=== PATIENT | female | born 1965 | race Caucasian/White ===

== ENCOUNTER 2017-01-29 15:21 | Observation (INO) ==
[2017-01-29] MEDS ORDERED: Ondansetron 4 MG/2 ML VIAL IVP ONE (15:55)
[2017-01-29] MEDS ORDERED: *HR* HYDROmorphone (PF) 1 MG/ML SYRINGE IVP ONE ×2 (15:55→17:56)
[2017-01-29] MEDS ORDERED: 0.9 % Sodium Chloride 1,000 ML IVC ONE (15:55)
[2017-01-29] MEDS ORDERED: Ketorolac 30 MG/ML VIAL IVP ONE (15:55)
[2017-01-29 16:16] LABS: Bilirubin,Urine Negative (Negative); Blood,Urine Moderate (Negative); Clarity,Urine Cloudy (Clear); Color,Urine Yellow (Yellow); Glucose,Urine (UA) Normal (Normal); Ketones,Urine Negative (Negative); Leukocyte Esterase,Urine Moderate (Negative); Nitrite,Urine Negative (Negative); Protein,Urine 30 mg/dL (Neg-Trace); Specific Gravity,Urine > 1.030 (1.010-1.025); Urobilinogen,Urine Normal (Normal)
[2017-01-29 16:19] LABS: Bacteria,Urine None Seen per hpf (None-Few); Squamous Epithelial Cell,Urine Many per lpf (None-Few); WBC,Urine TNTC per hpf (0-3)
[2017-01-29 16:45] LABS: Basophils % 0.2 %; Eosinophils % 0.2 %; Hematocrit 39.4 % (35.3-44.9); Hemoglobin 13.4 g/dL (11.5-15.4); Immature Granulocytes % 0.3 % (0-4); Lymphocytes # 0.6 K/mcL (0.6-4.6); Lymphocytes % 5.5 %; Mean Corpuscular Hemoglobin 31.4 pg (28.0-33.3); Mean Corpuscular Volume 92.3 fL (83.0-100.0); Mean Platelet Volume 10.8 fL (9.4-12.4); Monocytes # 0.3 K/mcL (0.0-1.3); Neutrophils # 10.1 K/mcL (1.6-8.9); Platelet Count 219 K/mcL (140-400); Red Blood Count 4.27 M/mcL (3.82-4.97); Red Cell Distribution Width 12.8 % (11.5-14.5); Segmented Neutrophils % 90.8 %
[2017-01-29 16:58] LABS: BUN/Creatinine Ratio 18 (6-26); Bilirubin,Direct 0.4 mg/dL (0.0-0.5); Bilirubin,Total 0.9 mg/dL (0.2-1.2); Blood Urea Nitrogen 19 mg/dL (7-20); Calcium 9.5 mg/dL (8.6-10.8); Carbon Dioxide 25 mEq/L (19-29); Chloride 104 mEq/L (98-109); Glucose 99 mg/dL (70-99); Osmolality,Calculated 288 (280-300); Potassium 3.2 mEq/L (3.5-4.5); Sodium 138 mEq/L (136-145); eGFR For African Americans > 60 (> 60); eGFR For Non-African Americans 54 (> 60)
[2017-01-29 16:59] LABS: Alanine Aminotransferase 9 Units/L (0-55); Albumin 3.7 g/dL (3.5-5.0); Albumin/Globulin Ratio 1.1 (1.1-2.2); Alkaline Phosphatase 70 Units/L (38-126); Aspartate Amino Transferase 15 Units/L (5-34); Bilirubin,Indirect 0.5 mg/dL (0.0-1.2); Globulin 3.3 g/dL (2.4-3.5)
--- NOTE | 2017-01-29 17:00 | Emergency Department Note ---
Disposition Clinical Impression: Vasovagal syncope, Renal calculi Disposition: Admitted As Inpatient Condition: Good Time of Disposition: 18:14 General Adult HPI - General Chief complaint: ED Syncope Stated complaint: Kidney Stones Time Seen by Provider: 01/29/17 15:37 Source: patient Limitations: no limitations Nursing Notes Reviewed: Yes Vital Signs Reviewed: Yes - History of Present Illness HPI Narrative: Patient began having left flank pain earlier today. States that she had a decreased appetite because of the pain was so severe. Does have history of kidney stones states this feels the same. Also had one episode of syncope while in the waiting room. This happened after she urinated and had walked back to her seat. Pain Scale: 9 - Related Data Home Medications Medication Instructions Recorded Confirmed Atorvastatin Calcium [Lipitor] 80 mg PO HS 01/29/17 01/29/17 Black Cohosh 540 mg PO DAILY 01/29/17 01/29/17 Cholecalciferol (Vitamin D3) 2,000 unit PO DAILY 01/29/17 01/29/17 [Vitamin D] Cyanocobalamin (Vitamin B-12) 500 mcg PO DAILY 01/29/17 01/29/17 [Vitamin B-12] Desog-E.estradiol/E.estradiol 1 each PO DAILY 01/29/17 01/29/17 [Azurette 28 Day Tablet] FLUoxetine HCl [PROzac] 20 mg PO AD 01/29/17 01/29/17 Lisinopril [Zestril] 5 mg PO DAILY 01/29/17 01/29/17 Loratadine [Claritin] 10 mg PO DAILY 01/29/17 01/29/17 hydroCHLOROthiazide 25 mg PO DAILY 01/29/17 01/29/17 [Hydrochlorothiazide] Allergies Allergy/AdvReac Type Severity Reaction Status Date / Time Bee Pollen Allergy See Verified 01/29/17 15:48 Comments All systems ED: reviewed and negative except as stated. Constitutional: Denies: fever, chills Cardiovascular: Denies: chest pain, palpitations, syncope Respiratory: Denies: cough, dyspnea Gastrointestinal: Reports: nausea. Denies: abdominal pain, vomiting, diarrhea, hematemesis, melena, hematochezia Genitourinary: Reports: hematuria. Denies: urgency, dysuria, frequency Musculoskeletal: Reports: back pain. Denies: neck pain Integumentary: Denies: rash, abrasion Neurological: Denies: headache, weakness, numbness Past Medical History - Past Medical History Attestation: Yes The following information was validated with the patient. Source: patient Medical history: Reports: hyperlipidemia, hypertension, kidney stones, migraine Psychiatric history: Reports: no psych history - Social History Smoking Status: Never smoker Smokeless Tobacco Status: No Alcohol use: Reports: none Drug use: Reports: none Physical Exam - General Limitations: no limitations General appearance: alert, in no apparent distress - Head Head exam: atraumatic, normocephalic, normal inspection - Eye Eye exam: Present: normal appearance, PERRL, EOMI. Absent: scleral icterus - ENT ENT exam: normal exam, normal oropharynx, mucous membranes moist - Neck Neck exam: Present: normal inspection, full ROM, trachea midline. Absent: tenderness - Chest Chest inspection: Present: normal inspection, symmetric chest wall rise. Absent : tenderness - Respiratory Respiratory exam: Present: normal lung sounds bilaterally. Absent: respiratory distress - Cardiovascular Cardiovascular exam: Present: regular rate, normal rhythm, normal heart sounds - Abdominal Exam Abdominal exam: Present: soft, Non-Tender, normal bowel sounds. Absent: tenderness, distention, guarding, rebound, rigidity, organomegaly - Extremities Exam Extremities exam: Present: normal inspection, full ROM, normal capillary refill. Absent: tenderness, pedal edema - Back Exam Back exam: Present: normal inspection, full ROM, CVA tenderness (L) - Neurological Exam Neurological exam: Present: alert, oriented X3 - Psychiatric Psychiatric exam: Present: normal affect, normal mood - Skin Skin exam: Present: warm, dry, intact, normal color. Absent: rash, cyanosis, erythema Course Course Narrative: Female patient states that today she started having left flank pain. She does have a history of kidney stones. States this feels the same. Denies any urinary symptoms such as burning or dysuria. Denies any hematuria. Surgery to have a stone removed. She cannot remember when her last stone was. States that it has been several years ago that she has had a CT scan. Patient states that she was seen at this facility and given additional health and sent to the emergency department. She states she had a syncopal episode while in the emergency department room. She denies any palpitations. She denies any shortness of breath or chest pain. Denies any fevers. She states she is otherwise healthy. States she is feeling better now however she did get a wave of hot and cold prior to her syncopal episode. She states she just returned from the bathroom. She was in a seated position when this happened. She did not fall and strike her head. She is mentating appropriately at this time. A CT scan of patient's abdomen provider with pain medication and get a basic lab workup inclusive of a UA. - Reevaluation(s) Reevaluation #1: I want to reassess the patient and discussed admission versus discharge with her. She is now saying that she is about to cry because the pain is so severe. She is requesting admission for pain control. We will admit patient to the hospital. Have given patient a dose of Rocephin due to her syncope, UA, renal stone. Time: 17:55 - Consultations Consultation #1: I spoke with Dr. Freed. He states that he will accept her to his service if the patient requests to stay for pain management. He states that he would also be able to see the patient in outpatient clinic tomorrow if she elects to go home. I will discuss this with the patient. Time: 17:53 Vital Signs Temperature 97.9 F 01/29/17 15:38 Pulse Rate 83 01/29/17 15:38 Respiratory Rate 16 01/29/17 15:38 Blood Pressure 127/75 01/29/17 15:38 O2 Sat by Pulse Oximetry 99 01/29/17 15:38 Temperature 98.7 F 01/30/17 17:38 Pulse Rate 83 01/30/17 17:48 Respiratory Rate 16 01/30/17 17:48 Blood Pressure 126/62 01/30/17 17:48 O2 Sat by Pulse Oximetry 95 01/30/17 17:48 Oxygen Delivery Oxygen Delivery Room Air Medical Decision Making - Medical Records Medical records reviewed: Yes I reviewed the patient's medical records. - Lab Data Lab results reviewed: Yes I reviewed the patient's lab results. Result diagrams: 01/29/17 16:36 01/30/17 02:36 Lab Results 01/29/17 01/29/17 01/29/17 Range/Units 16:07 16:36 16:36 WBC 11.1 (4.3-11.1) K/mcL RBC 4.27 (3.82-4.97) M/mcL Hgb 13.4 (11.5-15.4) g/dL Hct 39.4 (35.3-44.9) % MCV 92.3 (83.0-100.0) fL MCH 31.4 (28.0-33.3) pg MCHC 34.0 (31.6-35.5) g/dL RDW 12.8 (11.5-14.5) % Plt Count 219 (140-400) K/mcL MPV 10.8 (9.4-12.4) fL Immature Gran % 0.3 (0-4) % Seg Neutrophils % 90.8 % Lymphocytes % 5.5 % Monocytes % 3.0 % Eosinophils % 0.2 % Basophils % 0.2 % Neutrophils # 10.1 H (1.6-8.9) K/mcL Lymphocytes # 0.6 (0.6-4.6) K/mcL Monocytes # 0.3 (0.0-1.3) K/mcL Eosinophils # 0.0 (0.0-0.6) K/mcL Basophils # 0.0 (0.0-0.2) K/mcL Sodium 138 (136-145) mEq/L Potassium 3.2 L (3.5-4.5) mEq/L Chloride 104 (98-109) mEq/L Carbon Dioxide 25 (19-29) mEq/L BUN 19 (7-20) mg/dL Creatinine 1.07 (0.57-1.11) mg/dL Est GFR ( Amer) > 60 (> 60) Est GFR (Non-Af Amer) 54 L (> 60) BUN/Creatinine Ratio 18 (6-26) Glucose 99 (70-99) mg/dL Calculated Osmolality 288 (280-300) Calcium 9.5 (8.6-10.8) mg/dL Total Bilirubin 0.9 (0.2-1.2) mg/dL Direct Bilirubin 0.4 (0.0-0.5) mg/dL Indirect Bilirubin 0.5 (0.0-1.2) mg/dL AST 15 (5-34) Units/L ALT 9 (0-55) Units/L Alkaline Phosphatase 70 (38-126) Units/L Troponin I (0-0.03) ng/mL Serum Total Protein 7.0 (6.0-8.3) g/dL Albumin 3.7 (3.5-5.0) g/dL Globulin 3.3 (2.4-3.5) g/dL Albumin/Globulin Ratio 1.1 (1.1-2.2) Ur Specimen Adequacy See below A Urine Color Yellow (Yellow) Urine Clarity Cloudy A (Clear) Urine pH 6.0 (5.0-8.0) pH Units Ur Specific [place] > 1.030 H (1.010-1.025) Urine Protein 30 H (Neg-Trace) mg/dL Urine Glucose (UA) Normal (Normal) mg/dL Urine Ketones Negative (Negative) mg/dL Urine Blood Moderate H (Negative) Urine Nitrite Negative (Negative) Urine Bilirubin Negative (Negative) Urine Urobilinogen Normal (Normal) mg/dL Ur Leukocyte Esterase Moderate H (Negative) Urine Microscopic WBC TNTC H (0-3) per hpf Ur Squamous Epith Cells Many H (None-Few) per lpf Urine Bacteria None Seen (None-Few) per hpf Ur Culture Indicated? YES A (NO) 01/29/17 Range/Units 16:36 WBC (4.3-11.1) K/mcL RBC (3.82-4.97) M/mcL Hgb (11.5-15.4) g/dL Hct (35.3-44.9) % MCV (83.0-100.0) fL MCH (28.0-33.3) pg MCHC (31.6-35.5) g/dL RDW (11.5-14.5) % Plt Count (140-400) K/mcL MPV (9.4-12.4) fL Immature Gran % (0-4) % Seg Neutrophils % % Lymphocytes % % Monocytes % % Eosinophils % % Basophils % % Neutrophils # (1.6-8.9) K/mcL Lymphocytes # (0.6-4.6) K/mcL Monocytes # (0.0-1.3) K/mcL Eosinophils # (0.0-0.6) K/mcL Basophils # (0.0-0.2) K/mcL Sodium (136-145) mEq/L Potassium (3.5-4.5) mEq/L Chloride (98-109) mEq/L Carbon Dioxide (19-29) mEq/L BUN (7-20) mg/dL Creatinine (0.57-1.11) mg/dL Est GFR ( Amer) (> 60) Est GFR (Non-Af Amer) (> 60) BUN/Creatinine Ratio (6-26) Glucose (70-99) mg/dL Calculated Osmolality (280-300) Calcium (8.6-10.8) mg/dL Total Bilirubin (0.2-1.2) mg/dL Direct Bilirubin (0.0-0.5) mg/dL Indirect Bilirubin (0.0-1.2) mg/dL AST (5-34) Units/L ALT (0-55) Units/L Alkaline Phosphatase (38-126) Units/L Troponin I 0.02 (0-0.03) ng/mL Serum Total Protein (6.0-8.3) g/dL Albumin (3.5-5.0) g/dL Globulin (2.4-3.5) g/dL Albumin/Globulin Ratio (1.1-2.2) Ur Specimen Adequacy Urine Color (Yellow) Urine Clarity (Clear) Urine pH (5.0-8.0) pH Units Ur Specific [place] (1.010-1.025) Urine Protein (Neg-Trace) mg/dL Urine Glucose (UA) (Normal) mg/dL Urine Ketones (Negative) mg/dL Urine Blood (Negative) Urine Nitrite (Negative) Urine Bilirubin (Negative) Urine Urobilinogen (Normal) mg/dL Ur Leukocyte Esterase (Negative) Urine Microscopic WBC (0-3) per hpf Ur Squamous Epith Cells (None-Few) per lpf Urine Bacteria (None-Few) per hpf Ur Culture Indicated? (NO) - Radiology Data Radiology results reviewed: Yes I reviewed the patient's radiology results. Abdomen/Pelvis CT 01/29/17 15:58 IMPRESSION: Moderate left hydronephrosis secondary to a 5 mm calculus at the left ureteropelvic junction. D/ / Geraldo Carter MD / Geraldo Carter MD Interpreting Provider: Geraldo Carter MD Attestation Statement - Attestation Attestation: I, Noe Nails, examined this patient and my medical decision-making was reviewed with the DATA WAREHOUSE SPECIALIST/PA/Advanced Practice Nurse/Resident Physician. I agree with the documented findings, disposition and treatment plan as described except to the extent set forth below. 51-year-old male presents to the emergency department with concerns of flank pain. Patient states this feels like her previous kidney stones however she is always been able to pass stones without surgery. Patient syncopized once while waiting in the emergency Department secondary to pain. CT of the abdomen and pelvis shows a large 5 mm stone in the proximal ureter. Patient's pain is not well controlled after multiple doses of pain medication emergency department. Patient will be admitted to the hospital for further care and evaluation and pain control and evaluation by urology.
[2017-01-29] MEDS ORDERED: Ondansetron 4 MG/2 ML VIAL IVP PRN (18:48)
[2017-01-29] MEDS ORDERED: *HR* HYDROmorphone (PF) 1 MG/ML SYRINGE IVP PRN (18:48)
[2017-01-29] MEDS ORDERED: Ketorolac 15 MG/ML VIAL IVP PRN (18:48)
[2017-01-29] MEDS ORDERED: Naloxone 0.4 MG/ML INJ IVP PRN (18:48)
[2017-01-29] MEDS ORDERED: *HR* Promethazine 25 MG/ML VIAL IVP PRN (18:48)
--- NOTE | 2017-01-29 18:56 | Urology History & Physical ---
Date of Encounter: 01/29/17 Time of Encounter: 18:54 Assessment and Plan (1) Ureteral stone with hydronephrosis Current Visit: Yes Status: Acute we discussed that the patient has a 5 mm proximal stone. pain was not controlled enough for discharge. options discussed including trial of passage, ESWL (not available today) and attempt at insitu stone extraction today. will proceed with stone extraction. pt understands risk of the procedure including infection, injury to urinary, stricture, bleeding, stent pain/complication. There is a real possibility I will not be able to reach and remove the stone bc of its proximal location and this would require staged procedure. History of Present Illness Chief complaint: flank pain HPI: Ms. Burton is a 51 year old female with a hx of urolithiais. onset of severe flank pain. syncopal episode in ER. CT scan with a 5 mm UPJ stone with hydronephrosis. intractable pain after treatment in ER. no fever. Past Med Surg Social Fam HX - Past Medical History Medical history: hyperlipidemia, hypertension, kidney stones, migraine Psychiatric history: no psych history - Social History Smoking Status: Never smoker Smokeless Tobacco Status: No Alcohol use: none Drug use: none Medications and Allergies Atorvastatin Calcium [Lipitor] 80 mg PO HS 01/29/17 [History] Black Cohosh 540 mg PO DAILY 01/29/17 [History] Cholecalciferol (Vitamin D3) [Vitamin D] 2,000 unit PO DAILY 01/29/17 [History] Cyanocobalamin (Vitamin B-12) [Vitamin B-12] 500 mcg PO DAILY 01/29/17 [History] Desog-E.estradiol/E.estradiol [Azurette 28 Day Tablet] 1 each PO DAILY 01/29/17 [History] FLUoxetine HCl [PROzac] 20 mg PO AD 01/29/17 [History] Lisinopril [Zestril] 5 mg PO DAILY 01/29/17 [History] Loratadine [Claritin] 10 mg PO DAILY 01/29/17 [History] hydroCHLOROthiazide [Hydrochlorothiazide] 25 mg PO DAILY 01/29/17 [History] 3 Allergy/AdvReac Type Severity Reaction Status Date / Time Bee Pollen Allergy See Verified 01/29/17 15:48 Comments Review of Systems - Constitutional no chills, no fever(s) - EENT Nose, mouth and throat: no dizziness - Cardiovascular no chest pain - Respiratory no cough - Gastrointestinal abdominal pain, nausea - Genitourinary Genitourinary: flank pain - Musculoskeletal back pain - Integumentary no erythema - Neurological syncope, no confusion - Psychiatric no anxiety - Hematologic/Lymphatic no easy bleeding - Allergic/Immunologic no throat swelling Exam Initial Vital Signs Temp Pulse Resp BP Pulse Ox 97.9 F 83 16 127/75 99 01/29/17 15:38 01/29/17 15:38 01/29/17 15:38 01/29/17 15:38 01/29/17 15:38 - General physical appearance Present: well developed, no distress - Eyes Present: PERRL - ENT Present: normal nares - Neck Present: no masses - Respiratory Present: normal respiratory effort - Cardiovascular Cardiovascular exam IM: RRR - Abdomen Abdomen: Present: soft - Integumentary Present: no rash, no growths - Neurologic Present: normal coordination. Absent: disoriented, confused - Musculoskeletal Present: normal gait - Additional Findings +CVA tender Urology Results - Labs 01/29/17 16:36 01/29/17 16:36 Abnormal lab results Neutrophils # 10.1 K/mcL (1.6-8.9) H 01/29/17 16:36 Potassium 3.2 mEq/L (3.5-4.5) L 01/29/17 16:36 Est GFR (Non-Af Amer) 54 (> 60) L 01/29/17 16:36 Ur Specimen Adequacy See below A 01/29/17 16:07 Urine Clarity Cloudy (Clear) A 01/29/17 16:07 Ur Specific [place] > 1.030 (1.010-1.025) H 01/29/17 16:07 Urine Protein 30 mg/dL (Neg-Trace) H 01/29/17 16:07 Urine Blood Moderate (Negative) H 01/29/17 16:07 Ur Leukocyte Esterase Moderate (Negative) H 01/29/17 16:07 Urine Microscopic WBC TNTC per hpf (0-3) H 01/29/17 16:07 Ur Squamous Epith Cells Many per lpf (None-Few) H 01/29/17 16:07 Ur Culture Indicated? YES (NO) A 01/29/17 16:07 All other labs normal.
[2017-01-29] MEDS ORDERED: FLUoxetine 20 MG CAPSULE PO PRN (19:00)
[2017-01-29] MEDS: 0.9 % Sodium Chloride 1,000 ML IVC SCH (21:41)
[2017-01-30] MEDS: *HR* HYDROcodone/Acet 5/325 mg TABLET PO PRN ×3 (02:15→20:09)
[2017-01-30 03:44] LABS: BUN/Creatinine Ratio 15 (6-26); Blood Urea Nitrogen 16 mg/dL (7-20); Calcium 8.3 mg/dL (8.6-10.8); Carbon Dioxide 22 mEq/L (19-29); Chloride 105 mEq/L (98-109); Glucose 114 mg/dL (70-99); Osmolality,Calculated 288 (280-300); Potassium 3.5 mEq/L (3.5-4.5); Sodium 138 mEq/L (136-145); eGFR For African Americans > 60 (> 60); eGFR For Non-African Americans 53 (> 60)
[2017-01-30] MEDS: 0.9 % Sodium Chloride 1,000 ML IVC SCH ×3 (05:47→23:34)
[2017-01-30] MEDS ORDERED: Loratadine 10 MG TABLET PO SCH (09:00)
[2017-01-30] MEDS ORDERED: FLUoxetine 20 MG CAPSULE PO SCH (09:00)
[2017-01-30] MEDS ORDERED: hydroCHLOROthiazide 25 MG TABLET PO SCH (09:00)
--- NOTE | 2017-01-30 15:32 | Electrocardiograph Report ---
[address] [place], [place] [address] Test Date: 2017-01-29 Pat Name: Tiffany Burton Department: 102 Room: 3B13 Gender: F Admin Secretary: : [id number] Requested By: Tonya Fernández Order Number: [id number] Reading MD: Reena Pink Measurements Intervals [place] Rate: 84 P: 61 MO: 165 QRS: -28 QRSD: 103 T: 78 QT: 372 QTc: 412 Interpretive Statements SINUS RHYTHM LEFT AXIS DEVIATION LEFT VENTRICULAR HYPERTROPHY AND ST-T CHANGE POSSIBLE ANTEROSEPTAL MYOCARDIAL INFARCTION OF INDETERMINATE AGE Electronically Signed On 01-30-2017 15:30:33 EDT by Reena Pink
--- NOTE | 2017-01-30 16:31 | Anesthesia Evaluation PreOp ---
Date of Encounter: 01/30/17 Time of Encounter: 16:28 - Past History Planned Operation: Cystoscopy, Left Ureteral Stent Insertion Cardiac History: HTN, Hyperlipidemia Pulmonary History: Denies Any Significant HX WINDOWS APPLICATION ADMINISTRATOR History: Seizures (one episode 2 years ago, not being medically treated), Other (migraine PRITCHETT's) Other Medical History: Renal (kidney stones) Anesthesia History: No Prior Anesthetic Complications, Past Anesthesia Alcohol Use: none Drug use: none Medications and Allergies Atorvastatin Calcium [Lipitor] 80 mg PO HS 01/29/17 [History] Black Cohosh 540 mg PO DAILY 01/29/17 [History] Cholecalciferol (Vitamin D3) [Vitamin D] 2,000 unit PO DAILY 01/29/17 [History] Cyanocobalamin (Vitamin B-12) [Vitamin B-12] 500 mcg PO DAILY 01/29/17 [History] Desog-E.estradiol/E.estradiol [Azurette 28 Day Tablet] 1 each PO DAILY 01/29/17 [History] FLUoxetine HCl [PROzac] 20 mg PO AD 01/29/17 [History] Lisinopril [Zestril] 5 mg PO DAILY 01/29/17 [History] Loratadine [Claritin] 10 mg PO DAILY 01/29/17 [History] hydroCHLOROthiazide [Hydrochlorothiazide] 25 mg PO DAILY 01/29/17 [History] 3 Allergy/AdvReac Type Severity Reaction Status Date / Time Bee Pollen Allergy See Verified 01/29/17 15:48 Comments - Meds/Allergy Pre-op Review Medications Reviewed: Yes Allergies Reviewed: Yes Beta Blockers on Current Med List: No Anesthesia Results - Labs 01/29/17 16:36 01/30/17 02:36 - Imaging EKG: report reviewed (01/29/2017 SINUS RHYTHM LEFT AXIS DEVIATION LEFT VENTRICULAR HYPERTROPHY AND ST-T CHANGE POSSIBLE ANTEROSEPTAL MYOCARDIAL INFARCTION OF INDETERMINATE AGE) Additional studies: 07/18/2016 Echo Impressions: LVEF 60-65%. Normal LV chamber size, wall thickness and function. Mild left ventricular diastolic dysfunction. Normal right ventricular structure and function. Unable to estimate RVSP due to lack of TR jet. No significant valvular dysfunction. 06/23/2016 Stress Impressions: Stress ECG was indeterminate for ischemia due to baseline abnormal ST findings. Exercise capacity was good. Normal hemodynamic response to exercise. No arrhythmias noted with stress. Patient had no chest pain with stress. Anesthesia Exam Vital Signs/O2 Sat, Most Current Temp Pulse Resp BP Pulse Ox 101.2 F H 88 14 120/86 99 01/30/17 14:30 01/30/17 14:30 01/30/17 14:30 01/30/17 14:30 01/30/17 14:30 Height: 5'11''/1.8 m Weight: 165 lbs/75 kg NPO (# of Hours): 8 Pain Scale: 0 Pain Scale Used: Numeric (1 - 10) - HEENT Pupil (Motor): EOMI Mallampati: II Teeth: Normal Oral Opening: Greater than 3 - WINDOWS APPLICATION ADMINISTRATOR LOC: Oriented WINDOWS APPLICATION ADMINISTRATOR Motor: Normal RUE, Normal LUE, Normal RLE, Normal LLE, Normal Face WINDOWS APPLICATION ADMINISTRATOR Sensory: Normal: RUE, LUE, RLE, LLE, Face - Cardiac Rhythm: Regular Murmur: None - Pulmonary Breath Sounds: bilateral Clear Respiratory Effort: Symmetrical Anesthesia Assess/Plan ASA Score: 2 Modified [place] Scale for Level of Consciousness: Cooperative, oriented, and tranquil Anesthetic Plan: General Monitoring Plan: Standard Monitors Recovery Plan: PACU
[2017-01-30] MEDS ORDERED: Lidocaine -MPF 2% 2 ML VIAL ONE (17:06)
[2017-01-30] MEDS ORDERED: Propofol 500 MG/50 ML INFUS..BTL ONE (17:06)
[2017-01-30] MEDS ORDERED: *HR* FentaNYL (PF) 100 MCG/2 ML VIAL ONE (17:12)
[2017-01-30] MEDS ORDERED: Dexamethasone 4 MG/ML VIAL ONE (17:16)
[2017-01-30] MEDS ORDERED: Ondansetron 4 MG/2 ML VIAL ONE (17:16)
[2017-01-30] MEDS ORDERED: *HR* HYDROmorphone (PF) 1 MG/ML SYRINGE IVP PRN ×2 (17:33→18:49)
[2017-01-30] MEDS ORDERED: Ondansetron 4 MG/2 ML VIAL IVP ONE (17:33)
--- NOTE | 2017-01-30 17:42 | Operative Note ---
Date of procedure: 01/30/17 Pre-op diagnosis: left proximal ureteral stone Post-op diagnosis: same Procedure: cystoscopy. left retrograde pyelogram and ureteral stent placement Anesthesia: GETA Surgeon: Remi Freed Estimated blood loss (cc): 0 Specimen: none Condition: stable Disposition: PACU Procedure in Detail: PROCEDURE IN DETAIL: Patient was taken back to the operating room, positioned supine on the operating table. Anesthesia was applied without complication. They were moved into dorsal lithotomy. Careful attention was maintained to cushion all pressure points for patient's safety. They were prepped and draped in sterile fashion. Time-out was performed with the proper patient and procedure. A 21-[place]izen [place] rigid cystoscope was inserted into the bladder without difficulty. Systematic examination of bladder revealed no abnormalities. The ureteral orifice was cannulated using a 5-Citizen [place] ureteral Catheter and a retrograde pyelogram was performed using Isovue. A filling defect was identified which corresponded to the stone in the proximal left ureter. Once I placed the zip wire into the renal pelvis I had return of a large amount of purulent drainage from the ureteral orifice. A 4.8 x 26 ureteral stent was placed over the zip wire under fluoroscopy without complication. The bladder was drained.
--- NOTE | 2017-01-30 18:06 | Anesthesia Evaluation Post Op ---
Date of Encounter: 01/30/17 Time of Encounter: 18:05 - Vital Signs Vital Signs: Vital Signs/O2 Sat, Most Current Temp Pulse Resp BP Pulse Ox 98.7 F 82 16 118/72 97 01/30/17 17:38 01/30/17 17:58 01/30/17 17:58 01/30/17 17:58 01/30/17 17:58 - Lungs Lungs: Clear Ascult./Percussion - Airway Airway: Non-obstructed - Cardiovascular Regular Rate - Mental Status Mental Status: Alert & Oriented, Answers Appropriately - Pain Pain Scale: 3 Pain Scale used: Numeric (1 - 10) - Nausea Vomiting Nausea Vomiting: Not Present - Hydration Hydration: NPO, Has not voided - Discharge PostOp Status: Transfer Patient to floor
[2017-01-30] MEDS ORDERED: Ondansetron 4 MG/2 ML VIAL IVP PRN (18:49)
[2017-01-30] MEDS ORDERED: *HR* Promethazine 25 MG/ML VIAL IVP PRN (18:49)
[2017-01-30] MEDS ORDERED: Ketorolac 15 MG/ML VIAL IVP PRN (18:49)
[2017-01-30] MEDS ORDERED: Ibuprofen 400 MG TABLET PO PRN (18:49)
[2017-01-30] MEDS ORDERED: Naloxone 0.4 MG/ML INJ IVP PRN (18:49)
[2017-01-31] MEDS: 0.9 % Sodium Chloride 1,000 ML IVC SCH (03:42)
[2017-01-31] MEDS: *HR* HYDROcodone/Acet 5/325 mg TABLET PO PRN (06:15)
[2017-01-31 07:04] LABS: Basophils % 0.1 %; Immature Granulocytes % 0.5 % (0-4); Lymphocytes # 0.5 K/mcL (0.6-4.6); Lymphocytes % 5.2 %; Mean Corpuscular HGB Conc 34.4 g/dL (31.6-35.5); Mean Corpuscular Hemoglobin 32.4 pg (28.0-33.3); Mean Corpuscular Volume 94.4 fL (83.0-100.0); Mean Platelet Volume 11.7 fL (9.4-12.4); Monocytes # 0.6 K/mcL (0.0-1.3); Monocytes % 5.7 %; Neutrophils # 8.9 K/mcL (1.6-8.9); Platelet Count 122 K/mcL (140-400); Red Blood Count 3.39 M/mcL (3.82-4.97); Red Cell Distribution Width 13.2 % (11.5-14.5); Segmented Neutrophils % 88.5 %
[2017-01-31 07:10] LABS: BUN/Creatinine Ratio 13 (6-26); Blood Urea Nitrogen 11 mg/dL (7-20); Calcium 7.9 mg/dL (8.6-10.8); Carbon Dioxide 22 mEq/L (19-29); Chloride 110 mEq/L (98-109); Glucose 140 mg/dL (70-99); Osmolality,Calculated 292 (280-300); Potassium 3.3 mEq/L (3.5-4.5); Sodium 140 mEq/L (136-145); eGFR For African Americans > 60 (> 60); eGFR For Non-African Americans > 60 (> 60)
--- NOTE | 2017-01-31 07:34 | Discharge Summary ---
Date of Encounter: 01/31/17 Time of Encounter: 07:31 - Discharge Diagnosis (1) Ureteral stone with hydronephrosis Priority: Primary Status: Resolved - Discharge Medications Prescriptions: HYDROcodone/Acet 5/325 mg [[place] 5-325 mg] 1 tab PO Q4H PRN #15 tab PRN Reason: Moderate Pain Levofloxacin [Levaquin] 500 mg PO DAILY #10 tablet Phenazopyridine [Pyridium] 200 mg PO TID PRN #20 tab PRN Reason: burning with urination Home Medications: Atorvastatin Calcium [Lipitor] 80 mg PO HS 01/29/17 [History] Black Cohosh 540 mg PO DAILY 01/29/17 [History] Cholecalciferol (Vitamin D3) [Vitamin D3] 2,000 unit PO DAILY 01/29/17 [History] Cyanocobalamin (Vitamin B-12) [Vitamin B-12] 500 mcg PO DAILY 01/29/17 [History] Desog-E.estradiol/E.estradiol [Azurette 28 Day Tablet] 1 each PO DAILY 01/29/17 [History] FLUoxetine HCl [Prozac] 20 mg PO AD 01/29/17 [History] Lisinopril [Zestril] 5 mg PO DAILY 01/29/17 [History] Loratadine [Claritin] 10 mg PO DAILY 01/29/17 [History] hydroCHLOROthiazide [Hydrochlorothiazide] 25 mg PO DAILY 01/29/17 [History] HYDROcodone/Acet 5/325 mg [[place] 5-325 mg] 1 tab PO Q4H PRN #15 tab 01/31/17 [Rx ] Levofloxacin [Levaquin] 500 mg PO DAILY #10 tablet 01/31/17 [Rx] Phenazopyridine [Pyridium] 200 mg PO TID PRN #20 tab 01/31/17 [Rx] Allergies/Adverse Reactions: 3 Allergy/AdvReac Type Severity Reaction Status Date / Time Bee Pollen Allergy See Verified 01/29/17 15:48 Comments Labs on day of discharge: Labs from last 24 hours 01/31/17 01/31/17 05:50 05:50 WBC 10.1 RBC 3.39 L Hgb 11.0 L D Hct 32.0 L MCV 94.4 MCH 32.4 MCHC 34.4 RDW 13.2 Plt Count 122 L MPV 11.7 Immature Gran % 0.5 Seg Neutrophils % 88.5 Lymphocytes % 5.2 Monocytes % 5.7 Eosinophils % 0.0 Basophils % 0.1 Neutrophils # 8.9 Lymphocytes # 0.5 L Monocytes # 0.6 Eosinophils # 0.0 Basophils # 0.0 Sodium 140 Potassium 3.3 L Chloride 110 H Carbon Dioxide 22 BUN 11 Creatinine 0.87 Est GFR ( Amer) > 60 Est GFR (Non-Af Amer) > 60 BUN/Creatinine Ratio 13 Glucose 140 H Calculated Osmolality 292 Calcium 7.9 L - Impressions ITS Impressions Retrograde Pyelogram 01/30/17 00:00 IMPRESSION: Intraprocedural fluoroscopic spot images as above. See separate procedure report for more information. D/ / Edgar Kelley MD / Edgar Kelley MD Interpreting Provider: Edgar Kelley MD Date of admission: 01/29/17 18:05 Primary care physician: Meka Mcdonald Discharging clinician: Remi Freed Anticipated date of discharge: 01/31/17 - Patient Status Disposition: Home, Self-Care Condition: Good Functional capacity at discharge: independent ambulation Overall status at discharge: patient is progressing back to baseline - Discharge Instructions Follow Up With: Meka Mcdonald MD [Primary Care Provider] - Remi Freed MD [Partnered Physician] - (My office will call patient with follow-up surgery date) Additional Instructions: Expect stent discomfort including urgency, frequency, burning on urination, light blood in the urine, flank pain on urination. This is all normal. Call if excessive. Call if fever over 101 which does not decrease with ibuprofen or Tylenol - Diet and Activity Activity: increase activity as tolerated Diet: advance to your usual diet - Hospital Course Hospital course: Ms. Burton is a 51 year old female postoperative day #1 status post stent placement. Purulent urine was present behind stone. Patient did have a fever postoperatively has done well overnight. All vital signs are stable. Labs are stable this morning. Patient feels good. No nausea or malaise. Urine culture at admission negative. Plan to discharge today - Time Spent with Patient Total time spent providing and/or coordinating discharge services: Less than 30 minutes Exam Initial Vital Signs Temp Pulse Resp BP Pulse Ox 97.9 F 83 16 127/75 99 01/29/17 15:38 01/29/17 15:38 01/29/17 15:38 01/29/17 15:38 01/29/17 15:38 - General physical appearance Present: well developed, no distress
[2017-01-31 07:43] VITALS: BP 113/71
[2017-01-31] MEDS ORDERED: [UNRECOGNIZED DRUG - OTHER] PO SCH (09:00)
[2017-01-31] MEDS ORDERED: Loratadine 10 MG TABLET PO SCH (09:00)
[2017-01-31] MEDS ORDERED: FLUoxetine 20 MG CAPSULE PO SCH (09:00)
== END 2017-01-31 09:30 | disposition home or self-care (01) ==
LOC: EMEROO 15:21 → 3BNU 15:21
PROVIDERS: ADMIT Urology; ATTEND Urology